=== PATIENT | male | born 1955 | race Caucasian/White ===

== ENCOUNTER 2021-12-29 13:22 | Emergency (ER) | payer BC ==
[~2021-12-29] VITALS: Ht 182.9 cm; Wt 113.4 kg
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
--- NOTE | 2021-12-29 13:37 | NUR ---
PAGED CECILIA SOTO REGARDING AML ANALYST CONSULT
--- NOTE | 2021-12-29 14:42 | NUR ---
CALLED KASANDRA AND WAS NOTIFIED OF PT STATUS AND IS COMING FOR GRADUATE RECRUITER CONSULT.
--- NOTE | 2021-12-29 14:49 | NUR ---
SW AT BEDSIDE
--- NOTE | 2021-12-29 14:52 | NUR ---
PER SW, PT IS NOT COHERENT ENOUGH TO RESPOND TO QUESTIONS WHEN HE WAS BEING INTERVIEWED.
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
--- NOTE | 2021-12-29 16:22 | NUR ---
PT AWAKE AND VERBALLY RESPONSIVE. AMBULATORY. INSISTS OF WANTING TO LEAVE. PT'S GROCERIES WERE GIVEN BACK TO PATIENT. ADVISED IF SOMEONE IS GOING TO PICK HIM UP OR IF HE CAN ARRANGE TRANSPORTATION FOR HIMSELF; PATIENT STATED "I'M OKAY, I GOT THIS. I'M RUEL LEO". PT SEEN BY CAPRI RAMSEY, FOR EVAL.
[2021-12-29 16:50] VITALS: BP 138/87
== END 2021-12-29 16:22 | disposition home or self-care (01) ==
LOC: ER 13:24
DX: F10.129 Alcohol abuse with intoxication, unspecified (principal); Y90.9 Presence of alcohol in blood, level not specified

== ENCOUNTER 2021-12-29 17:51 | Emergency (ER) | payer BC ==
[~2021-12-29] VITALS: Ht 185.4 cm; Wt 100.9 kg
--- NOTE | 2021-12-29 17:55 | NUR ---
[id number] FOR ETOH INTOXICATION. TO ER BED 12, HOOKED TO MONITOR, CHANGED TO HOSP GOWN, WARM BLANKET PROVIDED. AWAITING MD MARCUS
--- NOTE | 2021-12-29 18:20 | NUR ---
PT SEEN BY DR. NICOLE AT BEDSIDE FOR EVAL
[2021-12-29 19:21] VITALS: BP 144/85
--- NOTE | 2021-12-29 21:00 | NUR ---
PT ambulatory with a steady gait
--- NOTE | 2021-12-29 21:11 | NUR ---
Patient discharged to home in stable condition. Written and verbal after care instructions given. Patient verbalizes understanding of instruction.
== END 2021-12-29 21:12 | disposition home or self-care (01) ==
LOC: ER 17:53
DX: F10.129 Alcohol abuse with intoxication, unspecified (principal); R47.81 Slurred speech; Y90.9 Presence of alcohol in blood, level not specified